=== PATIENT | female | born 1970 | race Caucasian/White ===

== ENCOUNTER → 2018-06-11 09:26 | Outpatient (CLI) | payer OTHER, SELFPAY ==
[2018-06-11 10:48] LABS: BUN Creatinine Ratio 21.3 (6-22); Blood Urea Nitrogen 17 mg/dL (7-17); Carbon Dioxide 25 mmol/L (22-32); Chloride 102 mmol/L (98-107); Cholesterol 215 mg/dL (140-199); Estimated Glomerular Filt Rate > 60.0 mL/min (>60); Glucose 76 mg/dL (70-100); HDL Cholesterol 59 mg/dL (40-60); HEMOLYSIS < 15 (0-50); LDL Cholesterol Calculated 131 mg/dL (<100); Potassium 4.2 mmol/L (3.4-5.1); Sodium 137 mmol/L (137-145); Triglycerides 123 mg/dL (35-150)
[2018-06-11 10:58] LABS: Creatinine Urine Random 147.7 mg/dL
[2018-06-11 11:03] LABS: Microalbumi Creatinin Ratio Ur 6.7 ug/mg CR (<30)
[2018-06-11 11:19] LABS: TSH w/ Reflex to FT4 1.66 uIU/mL (0.47-4.68)
== END ==
PROVIDERS: PCP Family Medicine; Visit Provider Family Medicine
DX: R53.83 Other fatigue (principal); I10 Essential (primary) hypertension
CPT/HCPCS: 36415; 80048; 80061; 82043; 82570; 84443

== ENCOUNTER → 2018-06-25 12:10 | Outpatient (CLI) | payer OTHER, SELFPAY ==
[2018-06-25 14:08] LABS: Influenza A and B by PCR Rapid Negative (Negative)
== END ==
PROVIDERS: PCP Family Medicine; Visit Provider Registered Nurse
DX: R50.9 Fever, unspecified (principal)
CPT/HCPCS: 87400

== ENCOUNTER → 2018-06-29 09:53 | Outpatient (CLI) | payer OTHER, SELFPAY ==
--- NOTE | 2018-06-29 | DI.MG.S_ITS ---
BILATERAL DIGITAL SCREENING MAMMOGRAM 3D/2D WITH CAD: 06/29/2018 CLINICAL: Baseline exam. Routine screening. No prior exams were available for comparison. The tissue of both breasts is heterogeneously dense. This may lower the sensitivity of mammography. Current study was also evaluated with a Computer Aided Detection (CAD) system. No significant masses, calcifications, or other findings are seen in either breast. IMPRESSION: NEGATIVE There is no mammographic evidence of malignancy. A 1 year screening mammogram is recommended. This exam was interpreted at Station ID: [id number]. NOTE: For mammograms, a report in lay terms will be sent to the patient. Approximately 15% of breast malignancies will not be visualized mammographically. In the management of a palpable breast mass, a negative mammogram must not discourage biopsy of a clinically suspicious lesion. Electronically Signed By: Chris peña/arash:07/01/2018 12:53:02 letter sent: Normal Exam ACR BI-RADS Category 1: Negative 3341F
== END ==
PROVIDERS: PCP Family Medicine; Visit Provider Family Medicine
DX: Z12.31 Encounter for screening mammogram for malignant neoplasm of breast (principal)
CPT/HCPCS: 77063; 77067

== ENCOUNTER → 2019-04-15 18:50 | Outpatient (CLI) | payer OTHER, SELFPAY | PROVIDERS: PCP Family Medicine; Visit Provider Nurse Practitioner | DX: J02.9 Acute pharyngitis, unspecified (principal) | CPT/HCPCS: 87070 ==

== ENCOUNTER → 2020-05-07 07:58 | Outpatient (CLI) | payer OTHER, SELFPAY ==
[2020-05-07] MEDS: COVID-19 VACC #1, MRNA(MOD) 100 MCG/0.5 ML VIAL IM (08:04)
== END ==
PROVIDERS: PCP Family Medicine; Visit Provider Internal Medicine
DX: Z23 Encounter for immunization (principal)
CPT/HCPCS: 0011A; 91301

== ENCOUNTER → 2020-06-04 07:50 | Outpatient (CLI) | payer OTHER, SELFPAY ==
[2020-06-04] MEDS: COVID-19 VACC #2, MRNA(MOD) 100 MCG/0.5 ML VIAL IM (07:58)
== END ==
PROVIDERS: PCP Family Medicine; Visit Provider Internal Medicine
DX: Z23 Encounter for immunization (principal)
CPT/HCPCS: 0012A; 91301

== ENCOUNTER → 2020-07-13 15:09 | Outpatient (CLI) | payer OTHER, SELFPAY ==
--- NOTE | 2020-07-13 | DI.MG.S_ITS ---
BILATERAL DIGITAL SCREENING MAMMOGRAM 3D/2D WITH CAD: 07/13/2020 CLINICAL: Routine screening. Comparison is made to exams dated: 06/29/2018 mammogram and 06/29/2018 mammogram - [facility]. There are scattered fibroglandular elements in both breasts. Current study was also evaluated with a Computer Aided Detection (CAD) system. No significant masses, calcifications, or other findings are seen in either breast. There has been no significant interval change. IMPRESSION: NEGATIVE There is no mammographic evidence of malignancy. A 1 year screening mammogram is recommended. This exam was interpreted at Station ID: [id number]. NOTE: For mammograms, a report in lay terms will be sent to the patient. Approximately 15% of breast malignancies will not be visualized mammographically. In the management of a palpable breast mass, a negative mammogram must not discourage biopsy of a clinically suspicious lesion. Electronically Signed By: Madeleine tapia/arash:07/13/2020 16:22:56 letter sent: Normal Exam ACR BI-RADS Category 1: Negative 3341F
== END ==
PROVIDERS: PCP Family Medicine; Referring Provider Family Medicine; Visit Provider Family Medicine
DX: Z12.31 Encounter for screening mammogram for malignant neoplasm of breast (principal)
CPT/HCPCS: 77063; 77067

== ENCOUNTER → 2020-07-17 08:43 | Outpatient (CLI) | payer OTHER, SELFPAY ==
[2020-07-17 10:41] LABS: Creatinine Urine Random 171.1 mg/dL
[2020-07-17 10:41] LABS: Alanine Aminotransferase 21 IU/L (<35); Albumin 4.1 g/dL (3.5-5.0); Albumin Globulin Ratio 1.3 (1.0-2.8); Alkaline Phosphatase 44 U/L (38-126); Aspartate Aminotransferase 30 IU/L (14-36); BUN Creatinine Ratio 15.9 (6-22); Bilirubin Total 0.5 mg/dL (0.2-1.3); Blood Urea Nitrogen 13 mg/dL (7-17); Calcium 8.8 mg/dL (8.4-10.2); Carbon Dioxide 25 mmol/L (22-32); Chloride 103 mmol/L (98-107); Cholesterol 183 mg/dL (140-199); Estimated Glomerular Filt Rate > 60.0 mL/min (>60); Globulin 3.2 g/dL (1.7-4.1); Glucose 77 mg/dL (70-100); HDL Cholesterol 63 mg/dL (40-60); HEMOLYSIS < 15 (0-50); LDL Cholesterol Calculated 87 mg/dL (<100); Sodium 135 mmol/L (137-145); Total Protein 7.3 g/dL (6.3-8.2); Triglycerides 163 mg/dL (35-150)
[2020-07-17 10:45] LABS: Microalbumi Creatinin Ratio Ur 8.7 ug/mg CR (<30); Microalbumin Urine Random 1.5 mg/dL (0-1.6)
== END ==
PROVIDERS: PCP Family Medicine; Referring Provider Family Medicine; Visit Provider Family Medicine
DX: I10 Essential (primary) hypertension (principal)
CPT/HCPCS: 36415; 80053; 80061; 82043; 82570

== ENCOUNTER → 2021-04-04 07:49 | Outpatient (CLI) | payer OTHER, SELFPAY ==
--- NOTE | 2021-04-04 07:50 | DI.US.S_ITS ---
PROCEDURE: US ABDOMEN COMPLETE INDICATIONS: RUQ PAIN TECHNIQUE: Real-time scanning was performed of the abdominal and retroperitoneal organs, with image documentation. COMPARISON: None. FINDINGS: Liver: Prominent size. Echogenicity is within normal limits. Gallbladder: Nondilated. Multiple gallstones. A larger stone at the gallbladder neck measures 1.2 cm. Normal gallbladder wall thickness. No pericholecystic fluid. Positive sonographic Mendes's sign. Biliary ducts: Intrahepatic bile ducts are non-dilated. Extrahepatic bile duct caliber measures 4 mm. Normal is 6-7 mm or less in diameter, or 10 mm or less post-cholecystectomy. Pancreas: Visualized portions of the pancreas are sonographically normal. Spleen: Spleen is normal in size and homogeneous in echotexture. Kidneys: Kidneys are normal in size and echotexture. Right kidney measures 12.9 cm long; left kidney measures 9.9 cm long. No hydronephrosis or nephrolithiasis. No solid masses. Aorta: Visualized aorta is normal in caliber at less than 3 cm. Iliacs: Proximal common iliac arteries are normal in caliber at less than 2.5 cm. IVC: Intrahepatic inferior vena cava is patent. Miscellaneous: No free abdominal fluid. IMPRESSION: 1. Increased hepatic echogenicity most consistent with hepatic steatosis. Other forms of hepatocellular disease could have similar appearance. 2. A gallstone lodged at the gallbladder neck measuring 1.2 cm. Positive sonographic Mendes's sign. Findings concerning for cholecystitis. 3. No hydronephrosis. Results called to the office of Dr. Luzmaria No at time of dictation. Dictated by: Ramy Jacob M.D. on 04/04/2021 at 8:54 Approved by: Ramy Jacob M.D. on 04/04/2021 at 9:04
== END ==
PROVIDERS: PCP Family Medicine; Referring Provider Family Medicine; Visit Provider Family Medicine
DX: K80.20 Calculus of gallbladder without cholecystitis without obstruction (principal); R10.13 Epigastric pain
CPT/HCPCS: 76700

== ENCOUNTER 2021-04-04 11:51 | Emergency (ER) | payer OTHER, SELFPAY ==
[2021-04-04 12:02] VITALS: BP 149/68; PULSE 99; RESP 18; TEMP 36.6; O2SAT 98; BMI 23.4
[2021-04-04 12:44] LABS: Add Manual Diff / Slide Review NO; Basophils Absolute Auto 0 /uL (0-100); Basophils Percent Auto 0.5 % (0-2); Eosinophils Absolute Auto 100 /uL (0-450); Eosinophils Percent Auto 1.3 % (2-4); Hematocrit 36.3 % (36-46); Lymphocytes Absolute Auto 1400 /uL (1100-4500); Lymphocytes Percent Auto 22.7 % (25-40); Mean Corpuscular Hemoglobin 26.8 PG (26-34); Mean Corpuscular Volume 81.3 fL (80-100); Monocytes Absolute Auto 600 /uL (0-900); Monocytes Percent Auto 8.7 % (3-14); Neutrophils Absolute Auto 4200 /uL (1500-7000); Neutrophils Percent Auto 66.8 % (50-75); Platelet Count 232 X10^3/uL (150-400); Red Blood Cell Count 4.47 X10^6/uL (4.0-5.2); Red Cell Distribution Width 15.9 % (11.6-14.8); White Blood Cell Count 6.3 X10^3/uL (4.5-11.0)
[2021-04-04 12:54] LABS: Alanine Aminotransferase 23 IU/L (<35); Albumin 4.7 g/dL (3.5-5.0); Albumin Globulin Ratio 1.4 (1.0-2.8); Alkaline Phosphatase 37 U/L (38-126); Aspartate Aminotransferase 41 IU/L (14-36); BUN Creatinine Ratio 22.5 (6-22); Bilirubin Total 0.5 mg/dL (0.2-1.3); Blood Urea Nitrogen 16 mg/dL (7-17); Calcium 9.4 mg/dL (8.4-10.2); Carbon Dioxide 22 mmol/L (22-32); Chloride 106 mmol/L (98-107); Estimated Glomerular Filt Rate > 60.0 mL/min (>60); Globulin 3.3 g/dL (1.7-4.1); Glucose 93 mg/dL (70-100); Lipase 198 U/L (23-300); Sodium 137 mmol/L (137-145)
--- NOTE | 2021-04-04 12:57 | ED.ABDPAIN ---
HPI - Abdominal Pain General Chief Complaint: Abdominal Pain Stated Complaint: Gallstone/infection- sent after US this AM Time Seen by Provider: 04/04/21 12:50 Source: patient Mode of arrival: Ambulatory Limitations: no limitations History of Present Illness HPI narrative: This is a 50-year-old female comes emergency department for changes on abdominal ultrasound. Patient states she has been having some bloating and increased gas and saw her primary care physician recently for annual exam. They ordered an abdominal ultrasound which was performed today as an outpatient and was found to have a gallstone lodged at the neck at 1.2 cm. She states when they pushed with the probe it was uncomfortable so she said it was painful when they are asked. But she states only mildly so and had some increased hepatic echogenicity. Patient states she has not really been having much pain at all. She has hot had any fevers. No nausea or vomiting. She mostly complains of bloating and gas. She has not had any back or flank pain. No diarrhea constipation and no urinary symptoms. Patient is on medication for blood pressure, dyslipidemia and antidepressant. She is allergic to amoxicillin and sulfa. She had a spinal fusion as a child. She tobacco, occasional alcohol, no illicit. Dr. No is her PCP. Patient's last meal was 11:30am. Related Data Previous Rx's Medication Instructions Recorded bupropion HCl 75 mg tablet See Rx Instructions .ROUTE 03/09/21 .COMPLEX #90 tab fluoxetine 40 mg capsule See Rx Instructions .ROUTE 03/09/21 .COMPLEX #90 cap lisinopril 10 mg tablet 10 mg .ROUTE .COMPLEX #90 tab 03/09/21 norethindrone acetate 1.5 See Rx Instructions .ROUTE 03/09/21 mg-ethinyl estradiol 30 mcg tablet .COMPLEX #105 tab (Olu) Allergies Allergy/AdvReac Type Severity Reaction Status Date / Time amoxicillin [AMOXICILLIN] Allergy Unknown Verified 04/04/21 12:01 Sulfa (Sulfonamide Allergy Unknown Verified 04/04/21 12:01 Antibiotics) [SULFA (SULFONAMIDE ANTIBIOTICS)] Review of Systems Review of Systems ROS Unobtainable: All systems reviewed & are unremarkable except as noted in HPI and below Patient History Medical History (Updated 04/04/21 @ 13:17 by Ml Kc DO) Congenital absence of right external ear Dextrocardia Essential hypertension Hearing loss Surgical History History of spinal fusion (1979) Family History Mother Hypertension Social History marital status: number of children: 2 household members: spouse lives independently: Yes caregiver/support person: No housing: house pets and animals: No education level: other (Masters and Graduate degree) occupational status: employed (Occupational Therapist) current occupational exposures/hazards: No travel history: recent (Trip from [place]) leisure activities: exercise (Walking, Hiking), reading and other (Traveling) Smoking Status: Former smoker Tobacco: How many years used: 0 quit status: quit date established (Never Started) second hand exposure: No alcohol intake: current (Rarely) substance use type: does not use Smoking Status: Former smoker alcohol intake frequency: holidays/special occasions only Exam Narrative Exam Narrative: GENERAL: Alert and oriented x three, female in no acute distress. HEENT: Head normocephalic, atraumatic, EOMI, pupils reactive, face symmetric, moist mucous membranes NECK: Supple, full range of motion CARDIOVASCULAR: Regular rate and rhythm without murmurs, rubs or gallops. RESPIRATORY: Breath sounds equal bilaterally, no wheezes rales or rhonchi. ABDOMEN: Soft, nontender to palpation. Non-distended. Normoactive bowel sounds all 4 quadrants. No guarding or rebound, rigidity, no mass : No CVA tenderness EXTREMITIES: Normal range of motion, no clubbing or edema. Neurovascularly intact NEUROLOGICAL: Cranial nerves II through XII grossly intact. Moving all extremities SKIN: Warm, dry, no petechiae, no rashes or lesions. Initial Vital Signs Initial Vital Signs: Vital Signs Temperature 97.8 F 04/04/21 12:02 Pulse Rate 99 H 04/04/21 12:02 Respiratory Rate 18 04/04/21 12:02 Blood Pressure 149/68 H 04/04/21 12:02 Pulse Oximetry 98 04/04/21 12:02 Course Orders Ordered: ED Orders 04/04/21 12:30 Complete Blood Count AUTO DIFF Stat Comprehensive Metabolic Panel Stat Lipase Stat 04/04/21 12:40 COVID19 - ADMIT (HYPERTRICHOLOGIST swab/PCR) Stat Consultations Consultation #1: Dr. Herrmann with general surgery. Patient's labs are reassuring. She has a gallstone that 12.5 cm in the neck of the gallbladder. She is asymptomatic and nontender with palpation. Patient would not wish to have surgery today she is open to following up with General surgery. We discussed and Dr. Herrmann believes he can probably see her tomorrow in the office and ask for the patient to call this afternoon for appointment. Vital Signs Vital signs: Vital Signs - 8 hr 04/04/21 14:33 04/04/21 16:03 Pulse Rate 108 H 91 H Respiratory Rate 18 Blood Pressure 127/79 122/70 Pulse Oximetry 99 98 MDM - Abdominal Pain Lab Data Result diagrams: 04/04/21 12:30 04/04/21 12:30 Labs: Lab Results 04/04/21 04/04/21 04/04/21 Range/Units 12:30 12:30 12:40 WBC 6.3 (4.5-11.0) X10^3/uL RBC 4.47 (4.0-5.2) X10^6/uL Hgb 12.0 (12.0-16.0) g/dL Hct 36.3 (36-46) % MCV 81.3 (80-100) fL MCH 26.8 (26-34) PG MCHC 33.0 (30-36) % RDW 15.9 H (11.6-14.8) % Plt Count 232 (150-400) X10^3/uL Neut % (Auto) 66.8 (50-75) % Lymph % (Auto) 22.7 L (25-40) % [place] % (Auto) 8.7 (3-14) % Eos % (Auto) 1.3 L (2-4) % Baso % (Auto) 0.5 (0-2) % Neut # (Auto) 4200 (2484-1801) /uL Lymph # (Auto) 1400 (4192-4695) /uL [place] # (Auto) 600 (0-900) /uL Eos # (Auto) 100 (0-450) /uL Baso # (Auto) 0 (0-100) /uL Sodium 137 (137-145) mmol/L Potassium 4.8 (3.4-5.1) mmol/L Chloride 106 (98-107) mmol/L Carbon Dioxide 22 (22-32) mmol/L BUN 16 (7-17) mg/dL Creatinine 0.71 (0.52-1.04) mg/dL Estimated GFR > 60.0 (>60) mL/min BUN/Creatinine Ratio 22.5 H (6-22) Glucose 93 (70-100) mg/dL Calcium 9.4 (8.4-10.2) mg/dL Total Bilirubin 0.5 (0.2-1.3) mg/dL AST 41 H (14-36) IU/L ALT 23 (<35) IU/L Alkaline Phosphatase 37 L (38-126) U/L Total Protein 8.0 (6.3-8.2) g/dL Albumin 4.7 (3.5-5.0) g/dL Globulin 3.3 (1.7-4.1) g/dL Albumin/Globulin Ratio 1.4 (1.0-2.8) Lipase 198 (23-300) U/L SARS-CoV-2 (PCR) Negative (Negative) Point of care testing: Point of Care Testing Test Results Negative Urine Dip Bedside Urine Glucose Negative Bedside Urine Bilirubin - Negative Bedside Urine Ketone - Negative Urine Specific [place] 1.025 Bedside Urine Occult Blood - Negative Bedside Urine pH 6.0 Bedside Urine Protein - Negative Bedside Urine Urobilinogen - Negative Bedside Urine Nitrite - Negative Bedside Urine Leukocytes - Negative Esterase Imaging Data US - abdomen: Radiologist's Impression: Bina Robles??50??F??1970 ? Allergy/Adv: amoxicillin, Sulfa (Sulfonamide Antibiotics) (More??) Close Abdomen Ultrasound (Signed) Ramy Jacob - 04/04/21 Mammogram Screening (Signed) Madeleine Coleman - 07/13/20 Mammogram Screening (Addendum) Chris Mcleod - 06/29/18 Launch?[address] [address] Ultrasound Report Signed Patient: Bina Robles MR#: [id number] : 1970 Acct:[id number] Age/Sex: 50 / F Date of Service: 04/04/21 Loc: US Accession Number: [id number] ?? Procedure: US abdomen complete Ordering Provider: Luzmaria No MD PROCEDURE:? US ABDOMEN COMPLETE ? INDICATIONS:? RUQ PAIN ? TECHNIQUE:? Real-time scanning was performed of the abdominal and retroperitoneal organs, with image documentation.? ? COMPARISON:? None. ? FINDINGS:? ? Liver:? Prominent size.? Echogenicity is within normal limits. ? Gallbladder:? Nondilated.? Multiple gallstones.? A larger stone at the gallbladder neck measures 1.2 cm. Normal gallbladder wall thickness. No pericholecystic fluid.? Positive sonographic Mendes's sign.? ? Biliary ducts:? Intrahepatic bile ducts are non-dilated.? Extrahepatic bile duct caliber measures 4 mm.? Normal is 6-7 mm or less in diameter, or 10 mm or less post-cholecystectomy.? ? Pancreas:? Visualized portions of the pancreas are sonographically normal.? ? Spleen:? Spleen is normal in size and homogeneous in echotexture.? ? Kidneys:? Kidneys are normal in size and echotexture.? Right kidney measures 12.9 cm long; left kidney measures 9.9 cm long.? No hydronephrosis or nephrolithiasis.? No solid masses.? ? Aorta:? Visualized aorta is normal in caliber at less than 3 cm.? ? Iliacs:? Proximal common iliac arteries are normal in caliber at less than 2.5 cm.? ? IVC:? Intrahepatic inferior vena cava is patent.? ? Miscellaneous:? No free abdominal fluid.? ? ? IMPRESSION:? 1. Increased hepatic echogenicity most consistent with hepatic steatosis. Other forms of hepatocellular disease could have similar appearance. ? 2. A gallstone lodged at the gallbladder neck measuring 1.2 cm.? Positive sonographic Mendes's sign.? Findings concerning for cholecystitis. ? 3. No hydronephrosis. ? ? Results called to the office of Dr. Luzmaria No at time of dictation. ? Dictated by: Ramy Jacob M.D. on 04/04/2021 at 8:54 ? ? Approved by: Ramy Jacob M.D. on 04/04/2021 at 9:04?? [facility] Narrative Medical decision making narrative: This is a 50-year-old female comes emergency department with concern for gallstone or possible infection. Patient at her annual exam complaint of bloating and gas. She had an outpatient ultrasound which showed 1.5 cm gallstone in the neck of the gallbladder and was tender she states when they pushed with a probe and asked her if it hurt. She states they pushed very hard. She states she is otherwise nontender and does not have tenderness when I palpate deeply. Her labs are reassuring. She does not wish to go to surgery today. We discussed with general surgery who does want to see her urgently and thinks they can have her seen tomorrow for an outpatient appointment and possibly surgery in the next week. We discussed red flag symptoms and return precautions. Patient feels most comfortable with this plan. Discharge Plan Departure Patient Disposition: Home Clinical Impression: Gallstone, Hepatic steatosis Instructions: DI for Gallstones Activity Restrictions/Additional Instructions: You have a gallstone lodged or impacted in the gallbladder neck. Follow-up with General surgery. Call as this is typically treated with surgery. Dr. Herrmann can probably see you tomorrow. Call the office this afternoon to set up a appointment. Please return for fevers, new abdominal pain, nausea vomiting, new back or flank pain or other new or concerning symptoms. Prescriptions: No Action lisinopril 10 mg tablet 10 mg .ROUTE .COMPLEX Qty: 90 3RF Rx Instructions: 10 mg; norethindrone ac-eth estradiol [Olu 1.5/30 (21)] 1.5-30 mg-mcg tablet See Rx Instructions .ROUTE .COMPLEX Qty: 105 3RF Dose Instruction: take 1 tablet by mouth once daily Rx Instructions: take 1 tablet by mouth once daily fluoxetine 40 mg capsule See Rx Instructions .ROUTE .COMPLEX Qty: 90 3RF Dose Instruction: take 1 capsule by mouth once daily Rx Instructions: take 1 capsule by mouth once daily bupropion HCl 75 mg tablet See Rx Instructions .ROUTE .COMPLEX Qty: 90 3RF Dose Instruction: take 1 tablet by mouth once daily Rx Instructions: take 1 tablet by mouth once daily Referrals: Doyle Herrmann MD [Physician] - Luzmaria No MD [Primary Care Provider] -
[2021-04-04 12:59] LABS: HEMOLYSIS 71 (0-50)
[2021-04-04 13:00] LABS: Potassium 4.8 mmol/L (3.4-5.1)
[2021-04-04 13:32] LABS: COVID19 - ADMIT (NP swab/PCR) Negative (Negative)
[2021-04-04 14:33] VITALS: BP 127/79; PULSE 108; O2SAT 99
[2021-04-04 16:03] VITALS: BP 122/70; PULSE 91; RESP 18; O2SAT 98
== END 2021-04-04 16:04 | disposition home or self-care (01) ==
PROVIDERS: Emergency Provider Emergency Medicine; PCP Family Medicine
DX: K80.80 Other cholelithiasis without obstruction (principal); K76.0 Fatty (change of) liver, not elsewhere classified; Z88.0 Allergy status to penicillin; Z88.2 Allergy status to sulfonamides; Z87.891 Personal history of nicotine dependence; Z20.822 Contact with and (suspected) exposure to COVID-19; R10.13 Epigastric pain; K80.20 Calculus of gallbladder without cholecystitis without obstruction
CPT/HCPCS: 36415; 76700; 80053; 81003; 81025; 83690; 85025; 87635; 99283; 99284; C9803

== ENCOUNTER → 2021-04-11 10:28 | Outpatient (CLI) | payer OTHER, SELFPAY | PROVIDERS: PCP Family Medicine; Referring Provider Surgery; Visit Provider Surgery | DX: Q24.0 Dextrocardia (principal) | CPT/HCPCS: 93005 ==

== ENCOUNTER 2021-04-18 07:49 | Day surgery (SDC) | payer OTHER, SELFPAY ==
[2021-04-18] VITALS (11 sets, daily range): BP systolic 106–139; BP diastolic 59–86; PULSE 83–100; RESP 12–18; TEMP 36.1–37; O2SAT 95–100; BMI 23.4
--- NOTE | 2021-04-18 | PATH_ITS ---
[facility] Accession Number: [id number] . 01 Material submitted: . gallbladder - GALLBLADDER . 01 Clinical history: . LAP SANTOS . 02 Diagnosis: Gallbladder, Laparoscopic Cholecystectomy: Mild chronic cholecystitis, cholesterolosis, and cholelithiasis. MRV 04/20/2021 1101 Local . 02 Electronically signed: . Jannette Marsh MD, Pathologist NPI- [id number] . 01 Gross description: . The specimen is received in formalin, labeled gallbladder and consists of a 7.5 x 2.5 x 2.0 cm intact gallbladder with a 0.3 cm in diameter cystic duct. The serosa is vázquez-purple and smooth. Opening reveals green viscous bile with multiple berry-green, multifaceted choleliths ranging from 0.2-1.6 cm. The mucosa is berry-green and velvety, and the wall thickness measures 0.1 cm. Lace Cutter sections are submitted, to include the en face cystic duct margin (blue) in cassette A1. (EA:[id number]) /MRV 04/19/2021 1026 Local . 02 Pathologist provided ICD-10: K81.1, K80.60 . 02 CPT . 963940 Specimen Comment: A duplicate report has been generated due to demographic updates. Performed at: 01 [facility] [address], [place], [place] [id number] MD Dereck Meeks MD Phone: [phone] Performed at: 02 [facility] [address] [place], [place] [id number] MD Chela Augustine MD Phone: [phone]
[2021-04-18 08:27] LABS: COVID19 -Nasal RAPID Negative (Negative)
[2021-04-18] MEDS: LACTATED RINGERS 1,000 ML 42 ML IV ×2 (09:02→10:05)
--- NOTE | 2021-04-18 09:12 | PM.PREOP ---
Pre-operative Note COVID-19 COVID-19 status: Negative Result date/Date tested (Pos, Neg/Pending): 04/18/21 Interval Note History & Physical reviewed/Exam performed by Physician: Yes Changes to H&P: No ASA Class (for procedural sedation): II
[2021-04-18] MEDS: CEFAZOLIN 2 GM/20 ML SYRINGE IV (09:40)
--- NOTE | 2021-04-18 09:49 | SUR.OPER ---
Supine on padded OR bed, head on pillow, arms secured on padded arm boards at <90 degrees abduction, legs uncrossed, safety belt at thigh, tape over blanket over lower legs. footboard in place.
[2021-04-18] MEDS: BUPIVACAINE 0.5% (PF) VIAL 30 ML INJ (10:00)
[2021-04-18] MEDS: LIDOCAINE 1% W/EPI 20 ML INJ (10:01)
--- NOTE | 2021-04-18 10:55 | P.OP_ITS ---
Operative Date/Time/Diagnoses Date of procedure: 04/18/21 Time of procedure: 10:55 Pre-op diagnosis: Gallstones Post-op diagnosis: same Procedure & Clinicians Procedure: Laparoscopic cholecystectomy Same procedure as scheduled: Yes Indications: Gallstones Surgeon: Doyle Herrmann Click Yes if Unassisted: Yes Anesthesia Type: General Operative Notes Findings: Gallstones, minimal pericholecystic inflammation Estimated Blood Loss (mL): 15 Procedure in detail: The patient was given 2 g of Ancef. The patient was brought to the operating room, placed on the table in the supine position. General endotracheal anesthesia was induced. The abdomen was prepped and draped. A time-out was performed. We made a 1 cm infraumbilical incision. We dissected down to the base of the umbilical stalk using cautery. We grasped the umbilical stalk with a Nathan clamp to elevate the abdominal wall. We scored the fascia in the midl ine with cautery 1 cm. We pierced the peritoneum with a Peon clamp. The Malcolm port was placed and the abdomen was insufflated to 15 mmHg. A 10 mm 30 degree laparoscopic was inserted. There was no evidence of any injury from the entry. Next, we placed 5 mm ports in the subxiphoid position and right upper quadrant at the midclavicular line and anterior axillary line. The patient was then posi tioned in reverse Trendelenburg and the table was tilted to the left. The gallbladder was grasped at the dome and retracted cephalad. We then dissected the cystic structures with a combination of hook cautery and blunt dissection. We obtained a critical view. We placed hemoclips on the cystic duct and artery and divided the cystic duct and artery sharply between the clips. Posterior branch was also clipped and divided. The gallbladder was then dissected off the liver and placed in a specimen retrieval bag. We irrigated the right upper quadrant and all the aspirate returned clear. We then removed the 5 mm ports under direct vision we removed the Malcolm port. We then injected some local into the fascia and closed the fascia with 2 interrupted 0 Vicryl sutures. The skin incisions were closed with 4 Monocryl and Steri-Strips were applied. Band- Aids were applied over the Steri-Strips. EBL: 10 mL Specimen: Gallbladder Post-operative Condition: stable Disposition: PACU
[2021-04-18] MEDS: fentaNYL 100 MCG/2 ML INJ IV ×2 (11:00→11:16)
[2021-04-18] MEDS: OXYCODONE/ACETAMINOPHEN 5/325 TABLET 1 TAB PO ×2 (11:22→11:43)
[2021-04-18] MEDS: HYDROMORPHONE 2 MG INJ IV (11:47)
--- NOTE | 2021-04-18 12:47 | SUR.PHASEII ---
pt transfered to OPD bed 4 at 1235 to Inessa Shepherd in [facility]. Pt declined to get up at this time, requesting to rest and let pain meds work. Dressing c/d/i. No nausea.
--- NOTE | 2021-04-18 12:57 | SUR.PHASEII ---
Spoke with Roshni REDDY in OR#[address] Herrmann patient still in pain. See new order for Torodal IV.
[2021-04-18] MEDS: KETOROLAC 30 MG/ML VIAL IV (13:09)
--- NOTE | 2021-04-18 14:26 | SUR.PHASEII ---
Pt discharged to home with spouse. WC to car. Pt steady on feet. Tolerated apple juice. DC instructions reviewed with at car.
== END 2021-04-18 13:45 | disposition home or self-care (01) ==
PROVIDERS: PCP Family Medicine; Referring Provider Surgery; Visit Provider Surgery
PROC: 0FT44ZZ Resection of Gallbladder, Percutaneous Endoscopic Approach (ICD-10-PCS; CPT 47562; principal; 2021-04-18 09:15)
DX: K80.20 Calculus of gallbladder without cholecystitis without obstruction (principal); I10 Essential (primary) hypertension; Q24.0 Dextrocardia; Z20.822 Contact with and (suspected) exposure to COVID-19
CPT/HCPCS: 47562; 87635; J0330; J0690; J1100; J1170; J1885; J2405; J2704; J3010

== ENCOUNTER → 2021-08-03 15:59 | Outpatient (CLI) | payer OTHER, SELFPAY ==
--- NOTE | 2021-08-03 | DI.MG.S_ITS ---
BILATERAL DIGITAL SCREENING MAMMOGRAM 3D/2D WITH CAD: 08/03/2021 CLINICAL: Routine screening. Comparison is made to exams dated: 07/13/2020 mammogram and 06/29/2018 mammogram - [facility]. There are scattered fibroglandular elements in both breasts. Current study was also evaluated with a Computer Aided Detection (CAD) system. No significant masses, calcifications, or other findings are seen in either breast. There has been no significant interval change. IMPRESSION: NEGATIVE There is no mammographic evidence of malignancy. A 1 year screening mammogram is recommended. This exam was interpreted at Station ID: [id number]. NOTE: For mammograms, a report in lay terms will be sent to the patient. Approximately 15% of breast malignancies will not be visualized mammographically. In the management of a palpable breast mass, a negative mammogram must not discourage biopsy of a clinically suspicious lesion. Electronically Signed By: Aaron Giles M.D., jr/arash:08/04/2021 08:42:58 letter sent: Normal Exam ACR BI-RADS Category 1: Negative 3341F
== END ==
PROVIDERS: PCP Family Medicine; Referring Provider Family Medicine; Visit Provider Family Medicine
DX: Z12.31 Encounter for screening mammogram for malignant neoplasm of breast (principal)
CPT/HCPCS: 77063; 77067

== ENCOUNTER → 2022-07-20 08:29 | Outpatient (CLI) | payer OTHER, SELFPAY ==
[2022-07-20 09:41] LABS: Add Manual Diff / Slide Review NO; Basophils Absolute Auto 100 /uL (0-100); Eosinophils Absolute Auto 100 /uL (0-450); Hematocrit 33.3 % (36-46); Hemoglobin 10.7 g/dL (12.0-16.0); Lymphocytes Absolute Auto 1400 /uL (1100-4500); Mean Corpuscular HGB Conc 32.2 % (30-36); Mean Corpuscular Hemoglobin 26.4 PG (26-34); Mean Corpuscular Volume 81.9 fL (80-100); Monocytes Absolute Auto 500 /uL (0-900); Monocytes Percent Auto 9.1 % (3-14); Neutrophils Absolute Auto 3400 /uL (1500-7000); Neutrophils Percent Auto 62.9 % (50-75); Platelet Count 204 X10^3/uL (150-400); Red Blood Cell Count 4.06 X10^6/uL (4.0-5.2); Red Cell Distribution Width 15.8 % (11.6-14.8); White Blood Cell Count 5.4 X10^3/uL (4.5-11.0)
[2022-07-20 10:26] LABS: Alanine Aminotransferase 24 IU/L (<35); Albumin 4.1 g/dL (3.5-5.0); Albumin Globulin Ratio 1.5 (1.0-2.8); Alkaline Phosphatase 45 U/L (38-126); Aspartate Aminotransferase 25 IU/L (14-36); Bilirubin Total 0.5 mg/dL (0.2-1.3); Blood Urea Nitrogen 13 mg/dL (7-17); Calcium 8.7 mg/dL (8.4-10.2); Carbon Dioxide 22 mmol/L (22-32); Chloride 103 mmol/L (98-107); Cholesterol 167 mg/dL (140-199); Estimated Glomerular Filt Rate > 60 mL/min (>60); Globulin 2.8 g/dL (1.7-4.1); Glucose 80 mg/dL (70-100); HDL Cholesterol 63 mg/dL (40-60); HEMOLYSIS < 15 (0-50); LDL Cholesterol Calculated 72 mg/dL (<100); Sodium 135 mmol/L (137-145); Total Protein 6.9 g/dL (6.3-8.2); Triglycerides 159 mg/dL (35-150)
[2022-07-20 10:52] LABS: Thyroid Stimulating Hormone 1.75 uIU/mL (0.47-4.68)
== END ==
PROVIDERS: PCP Family Medicine; Referring Provider Naturopath; Visit Provider Naturopath
DX: Z00.00 Encounter for general adult medical examination without abnormal findings (principal); I10 Essential (primary) hypertension; F10.10 Alcohol abuse, uncomplicated
CPT/HCPCS: 36415; 80053; 80061; 84443; 85025

== ENCOUNTER → 2022-10-31 14:14 | Outpatient (CLI) | payer OTHER, SELFPAY ==
[2022-10-31 15:09] LABS: Add Manual Diff / Slide Review NO; Basophils Absolute Auto 100 /uL (0-100); Basophils Percent Auto 1.1 % (0-2); Eosinophils Absolute Auto 100 /uL (0-450); Eosinophils Percent Auto 1.5 % (2-4); Hematocrit 35.1 % (36-46); Hemoglobin 11.7 g/dL (12.0-16.0); Lymphocytes Absolute Auto 1700 /uL (1100-4500); Lymphocytes Percent Auto 24.4 % (25-40); Mean Corpuscular HGB Conc 33.4 % (30-36); Mean Corpuscular Hemoglobin 27.9 PG (26-34); Mean Corpuscular Volume 83.6 fL (80-100); Monocytes Absolute Auto 500 /uL (0-900); Monocytes Percent Auto 6.6 % (3-14); Neutrophils Absolute Auto 4700 /uL (1500-7000); Neutrophils Percent Auto 66.4 % (50-75); Platelet Count 237 X10^3/uL (150-400); Red Cell Distribution Width 15.2 % (11.6-14.8); White Blood Cell Count 7.1 X10^3/uL (4.5-11.0)
[2022-10-31 16:04] LABS: Ferritin 17 ng/mL (11-264)
[2022-11-01 21:04] LABS: Deamidated Gliadin Ab IgA 5 units (0-19); Deamidated Gliadin Ab IgG 3 units (0-19); Immunoglobulin A,Qn 241 mg/dL (87-352); t-Transglutaminase IgA <2 U/mL (0-3)
== END ==
PROVIDERS: PCP Family Medicine; Referring Provider Naturopath; Visit Provider Naturopath
DX: D50.9 Iron deficiency anemia, unspecified (principal); Z83.79 Family history of other diseases of the digestive system
CPT/HCPCS: 36415; 82728; 82784; 83516; 85025

== ENCOUNTER → 2022-11-03 14:27 | Outpatient (CLI) | payer OTHER, SELFPAY ==
--- NOTE | 2022-11-03 14:30 | DI.MG.S_ITS ---
BILATERAL DIGITAL SCREENING MAMMOGRAM 3D/2D WITH CAD: 11/03/2022 CLINICAL: Routine screening. Comparison is made to exams dated: 08/03/2021 mammogram, 07/13/2020 mammogram, and 06/29/2018 mammogram - [facility]. There are scattered areas of fibroglandular density in both breasts (category b / 25%-50% glandular tissue). Current study was also evaluated with a Computer Aided Detection (CAD) system. No significant masses, calcifications, or other findings are seen in either breast. There has been no significant interval change. IMPRESSION: NEGATIVE There is no mammographic evidence of malignancy. A 1 year screening mammogram is recommended. Based on the Tyrer Cuzick model (a risk assessment model) the patient's lifetime risk is 9.3% and her 10 year risk is 2.2%. According to the ACR, ACS, and NCCN guidelines, an annual breast MRI exam along with mammogram is recommended if the patient's lifetime risk is 20% or greater. This exam was interpreted at Station ID: [id number]. NOTE: For mammograms, a report in lay terms will be sent to the patient. Approximately 15% of breast malignancies will not be visualized mammographically. In the management of a palpable breast mass, a negative mammogram must not discourage biopsy of a clinically suspicious lesion. Electronically Signed By: David singer/arash:11/03/2022 15:12:48 letter sent: Normal Exam ACR BI-RADS Category 1: Negative 3341F
== END ==
PROVIDERS: PCP Family Medicine; Referring Provider Family Medicine; Visit Provider Family Medicine
DX: Z12.31 Encounter for screening mammogram for malignant neoplasm of breast (principal)
CPT/HCPCS: 77063; 77067

== ENCOUNTER → 2022-11-27 10:17 | Outpatient (CLI) | payer OTHER, SELFPAY ==
[2022-11-27 11:07] LABS: Add Manual Diff / Slide Review NO; Basophils Absolute Auto 100 /uL (0-100); Basophils Percent Auto 1.2 % (0-2); Eosinophils Absolute Auto 100 /uL (0-450); Eosinophils Percent Auto 2.1 % (2-4); Hematocrit 34.6 % (36-46); Hemoglobin 11.6 g/dL (12.0-16.0); Lymphocytes Absolute Auto 1200 /uL (1100-4500); Lymphocytes Percent Auto 22.1 % (25-40); Mean Corpuscular HGB Conc 33.7 % (30-36); Mean Corpuscular Hemoglobin 28.3 PG (26-34); Monocytes Absolute Auto 400 /uL (0-900); Monocytes Percent Auto 7.7 % (3-14); Neutrophils Absolute Auto 3600 /uL (1500-7000); Neutrophils Percent Auto 66.9 % (50-75); Platelet Count 224 X10^3/uL (150-400); Red Blood Cell Count 4.12 X10^6/uL (4.0-5.2); Red Cell Distribution Width 14.8 % (11.6-14.8); White Blood Cell Count 5.4 X10^3/uL (4.5-11.0)
[2022-11-27 11:09] LABS: HEMOLYSIS < 15 (0-50); Iron 93 ug/dL (37-170)
[2022-11-27 11:22] LABS: Percent Iron Saturation 17 % (15-50); Total Iron Binding Capacity 536 ug/dL (265-497); Transferrin 435 mg/dL (206-381)
== END ==
PROVIDERS: PCP Family Medicine; Referring Provider Family Medicine; Visit Provider Family Medicine
DX: D50.8 Other iron deficiency anemias (principal); D64.9 Anemia, unspecified
CPT/HCPCS: 36415; 83540; 83550; 85025

== ENCOUNTER → 2023-02-05 13:12 | Outpatient (CLI) | payer OTHER, SELFPAY ==
[2023-02-05 14:36] LABS: Reticulocyte Count, Percent 0.9 % (1.1-2.6)
[2023-02-05 14:42] LABS: Alanine Aminotransferase 24 IU/L (<35); Albumin 4.4 g/dL (3.5-5.0); Albumin Globulin Ratio 1.6 (1.0-2.8); Alkaline Phosphatase 55 U/L (38-126); Aspartate Aminotransferase 31 IU/L (14-36); BUN Creatinine Ratio 22.7 (6-22); Bilirubin Total 0.3 mg/dL (0.2-1.3); Blood Urea Nitrogen 17 mg/dL (7-17); Calcium 9.8 mg/dL (8.4-10.2); Carbon Dioxide 25 mmol/L (22-32); Chloride 99 mmol/L (98-107); Estimated Glomerular Filt Rate > 60 mL/min (>60); Globulin 2.8 g/dL (1.7-4.1); Glucose 102 mg/dL (70-100); HEMOLYSIS < 15 (0-50); Potassium 4.3 mmol/L (3.4-5.1); Sodium 135 mmol/L (137-145); Total Protein 7.2 g/dL (6.3-8.2)
[2023-02-05 15:13] LABS: TSH w/ Reflex to FT4 1.72 uIU/mL (0.47-4.68)
[2023-02-05 15:48] LABS: Folate 16.7 ng/mL (2.76-20.0); Vitamin B12 253 pg/mL (239-931)
== END ==
PROVIDERS: PCP Family Medicine; Referring Provider Family Medicine; Visit Provider Family Medicine
DX: D64.9 Anemia, unspecified (principal)
CPT/HCPCS: 36415; 80053; 82607; 82746; 84443; 85045

== ENCOUNTER → 2024-01-01 09:21 | Outpatient (CLI) | payer OTHER, SELFPAY ==
--- NOTE | 2024-01-01 09:23 | DI.MG.S_ITS ---
BILATERAL DIGITAL SCREENING MAMMOGRAM 3D/2D WITH CAD: 01/01/2024 CLINICAL: Routine screening. Comparison is made to exams dated: 11/03/2022 mammogram, 08/03/2021 mammogram, and 07/13/2020 mammogram - [facility]. There are scattered areas of fibroglandular density (category b / 25%-50% glandular tissue). Current study was also evaluated with a Computer Aided Detection (CAD) system. No significant masses, calcifications, or other findings are seen in either breast. There has been no significant interval change. IMPRESSION: NEGATIVE There is no mammographic evidence of malignancy. A 1 year screening mammogram is recommended. Based on the Tyrer Cuzick model (a risk assessment model) the patient's lifetime risk is 9.2% and her 10 year risk is 2.2%. According to the ACR, ACS, and NCCN guidelines, an annual breast MRI exam along with mammogram is recommended if the patient's lifetime risk is 20% or greater. This exam was interpreted at Station ID: [id number]. NOTE: For mammograms, a report in lay terms will be sent to the patient. Approximately 15% of breast malignancies will not be visualized mammographically. In the management of a palpable breast mass, a negative mammogram must not discourage biopsy of a clinically suspicious lesion. Electronically Signed By: David singer/arash:01/01/2024 14:25:04 letter sent: Normal Exam ACR BI-RADS Category 1: Negative 3341F
== END ==
PROVIDERS: PCP Family Medicine; Referring Provider Family Medicine; Visit Provider Family Medicine
DX: Z12.31 Encounter for screening mammogram for malignant neoplasm of breast (principal)
CPT/HCPCS: 77063; 77067

== ENCOUNTER → 2024-06-26 09:13 | Outpatient (CLI) | payer OTHER, SELFPAY ==
[2024-06-26 10:20] LABS: Add Manual Diff / Slide Review NO; Basophils Absolute Auto 0 /uL (0-100); Basophils Percent Auto 0.6 % (0-2); Eosinophils Absolute Auto 100 /uL (0-450); Eosinophils Percent Auto 2.2 % (2-4); Hematocrit 37.3 % (36-46); Hemoglobin 12.2 g/dL (12.0-16.0); Lymphocytes Absolute Auto 1500 /uL (1100-4500); Lymphocytes Percent Auto 26.6 % (25-40); Mean Corpuscular HGB Conc 32.7 % (30-36); Mean Corpuscular Hemoglobin 27.2 PG (26-34); Mean Corpuscular Volume 83.1 fL (80-100); Monocytes Absolute Auto 600 /uL (0-900); Monocytes Percent Auto 10.8 % (3-14); Neutrophils Absolute Auto 3300 /uL (1500-7000); Neutrophils Percent Auto 59.8 % (50-75); Platelet Count 233 X10^3/uL (150-400); Red Blood Cell Count 4.48 X10^6/uL (4.0-5.2); Red Cell Distribution Width 13.7 % (11.6-14.8); White Blood Cell Count 5.5 X10^3/uL (4.5-11.0)
[2024-06-26 11:03] LABS: Alanine Aminotransferase 52 IU/L (<35); Albumin 4.2 g/dL (3.5-5.0); Albumin Globulin Ratio 1.4 (1.0-2.8); Alkaline Phosphatase 69 U/L (38-126); Aspartate Aminotransferase 52 IU/L (14-36); BUN Creatinine Ratio 11.2 (6-22); Bilirubin Total 0.4 mg/dL (0.2-1.3); Blood Urea Nitrogen 10 mg/dL (7-17); Calcium 9.5 mg/dL (8.4-10.2); Carbon Dioxide 27 mmol/L (22-32); Chloride 103 mmol/L (98-107); Estimated Glomerular Filt Rate > 60 mL/min (>60); Globulin 2.9 g/dL (1.7-4.1); Glucose 82 mg/dL (70-100); HEMOLYSIS < 15 (0-50); Lipase 1449 U/L (23-300); Potassium 3.9 mmol/L (3.4-5.1); Sodium 140 mmol/L (137-145); Total Protein 7.1 g/dL (6.3-8.2)
[2024-06-26 11:18] LABS: Free T4, Direct Thyroxine 1.02 ng/dL (0.78-2.19)
== END ==
LOC: LAB 09:14
PROVIDERS: PCP Family Medicine; Referring Provider Family Medicine; Visit Provider Family Medicine
DX: R10.84 Generalized abdominal pain (principal); R19.4 Change in bowel habit
CPT/HCPCS: 36415; 80053; 83690; 84439; 84443; 85025